=== PATIENT | female | born 1960 | race Caucasian/White ===

== ENCOUNTER → 2023-10-25 09:52 | Outpatient (REF) | payer MEDICARE, BC, SELFPAY | LOC: PAVMRI 09:52 | PROVIDERS: ATTENDING PHYSICIAN Orthopaedic Surgery; FAMILY PHYSICIAN Internal Medicine | DX: M51.35 Other intervertebral disc degeneration, thoracolumbar region (principal) | CPT/HCPCS: 72148 ==

== ENCOUNTER → 2023-12-23 11:04 | Outpatient (REF) | payer MEDICARE, BC, SELFPAY | LOC: RAD 11:04 | PROVIDERS: ATTENDING PHYSICIAN Surgery Vascular Surgery; FAMILY PHYSICIAN Internal Medicine | DX: I77.9 Disorder of arteries and arterioles, unspecified (principal) | CPT/HCPCS: 93922; 93925 ==

== ENCOUNTER → 2024-01-24 10:00 | Outpatient (REF) | payer MEDICARE, BC, SELFPAY | LOC: WDC 10:00 | PROVIDERS: ATTENDING PHYSICIAN Internal Medicine; REFERRING PHYSICIAN Internal Medicine Rheumatology | DX: Z12.31 Encounter for screening mammogram for malignant neoplasm of breast (principal); M81.0 Age-related osteoporosis without current pathological fracture | CPT/HCPCS: 77063; 77067; 77080 ==

== ENCOUNTER 2024-03-05 08:40 | Outpatient (RCR) | payer MEDICARE, BC, SELFPAY | END 2024-03-05 23:59 | disposition home or self-care (01) | LOC: RPT 08:40 | PROVIDERS: ATTENDING PHYSICIAN Pain Medicine Interventional Pain Medicine; FAMILY PHYSICIAN Internal Medicine | DX: M54.16 Radiculopathy, lumbar region (principal); Z73.6 Limitation of activities due to disability; M62.81 Muscle weakness (generalized); M79.605 Pain in left leg | CPT/HCPCS: 97110; 97162 ==

== ENCOUNTER 2024-04-10 11:02 | Outpatient (RCR) | payer MEDICARE, BC, SELFPAY | END 2024-04-10 23:59 | disposition home or self-care (01) | LOC: RPT 11:02 | PROVIDERS: ATTENDING PHYSICIAN Pain Medicine Interventional Pain Medicine; FAMILY PHYSICIAN Internal Medicine | DX: M54.16 Radiculopathy, lumbar region (principal); Z73.6 Limitation of activities due to disability; M62.81 Muscle weakness (generalized); M79.605 Pain in left leg; R26.89 Other abnormalities of gait and mobility | CPT/HCPCS: 97110; 97112 ==

== ENCOUNTER 2024-05-10 10:32 | Outpatient (RCR) | payer MEDICARE, BC, SELFPAY | END 2024-05-10 23:59 | disposition home or self-care (01) | LOC: RPT 10:32 | PROVIDERS: ATTENDING PHYSICIAN Pain Medicine Interventional Pain Medicine; FAMILY PHYSICIAN Internal Medicine | DX: M54.16 Radiculopathy, lumbar region (principal); Z73.6 Limitation of activities due to disability; M62.81 Muscle weakness (generalized); M79.605 Pain in left leg; R26.89 Other abnormalities of gait and mobility | CPT/HCPCS: 97110; 97112 ==

== ENCOUNTER 2024-06-12 11:18 | Outpatient (RCR) | payer MEDICARE, BC, SELFPAY | END 2024-06-12 23:59 | disposition home or self-care (01) | LOC: RPT 11:18 | PROVIDERS: ATTENDING PHYSICIAN Pain Medicine Interventional Pain Medicine; FAMILY PHYSICIAN Internal Medicine | DX: M54.16 Radiculopathy, lumbar region (principal); Z73.6 Limitation of activities due to disability; M62.81 Muscle weakness (generalized); M79.605 Pain in left leg; R26.2 Difficulty in walking, not elsewhere classified; R26.89 Other abnormalities of gait and mobility; Z91.81 History of falling | CPT/HCPCS: 97110; 97112 ==

== ENCOUNTER 2024-07-13 11:06 | Outpatient (RCR) | payer MEDICARE, BC, SELFPAY | END 2024-07-13 12:35 | disposition home or self-care (01) | LOC: RPT 11:06 | PROVIDERS: ATTENDING PHYSICIAN Pain Medicine Interventional Pain Medicine; FAMILY PHYSICIAN Internal Medicine | DX: M54.16 Radiculopathy, lumbar region (principal); Z73.6 Limitation of activities due to disability; M62.81 Muscle weakness (generalized); R26.2 Difficulty in walking, not elsewhere classified; R26.89 Other abnormalities of gait and mobility; Z91.81 History of falling; M79.605 Pain in left leg | CPT/HCPCS: 97110; 97112; 97530 ==

== ENCOUNTER → 2024-07-18 09:59 | Outpatient (REF) | payer MEDICARE, BC, SELFPAY | LOC: RAD 09:59 | PROVIDERS: ATTENDING PHYSICIAN Surgery Vascular Surgery; FAMILY PHYSICIAN Internal Medicine | DX: I77.9 Disorder of arteries and arterioles, unspecified (principal) | CPT/HCPCS: 93922; 93925; 93978 ==

== ENCOUNTER → 2024-10-25 14:35 | Outpatient (REF) | payer MEDICARE, BC, SELFPAY | LOC: DHSLP 14:35 | PROVIDERS: ATTENDING PHYSICIAN Internal Medicine | DX: G47.19 Other hypersomnia (principal); R06.83 Snoring | CPT/HCPCS: 95800 ==

== ENCOUNTER → 2024-11-02 13:05 | Outpatient (REF) | payer MEDICARE, BC, SELFPAY ==
[2024-11-02 15:07] LABS: Blood Urea Nitrogen 55 mg/dl (7-17); Calcium 9.8 mg/dl (8.4-10.2); Carbon Dioxide 24 mmol/L (22-30); Chloride 103 mmol/L (98-107); Glucose 193 mg/dl (70-99); Potassium 4.9 mmol/L (3.5-5.1); Sodium 137 mmol/L (135-145); eGFR 29.12
== END ==
LOC: REG 13:05
PROVIDERS: FAMILY PHYSICIAN Internal Medicine; OTHER PHYSICIAN Internal Medicine Cardiovascular Disease
DX: I10 Essential (primary) hypertension (principal); I50.32 Chronic diastolic (congestive) heart failure; N18.4 Chronic kidney disease, stage 4 (severe); E10.65 Type 1 diabetes mellitus with hyperglycemia
CPT/HCPCS: 36415; 80048

== ENCOUNTER → 2024-12-10 11:39 | Outpatient (REF) | payer MEDICARE, BC, SELFPAY ==
[2024-12-10 13:21] LABS: Blood Urea Nitrogen 53 mg/dl (7-17); Calcium 9.4 mg/dl (8.4-10.2); Carbon Dioxide 29 mmol/L (22-30); Chloride 99 mmol/L (98-107); Glucose 131 mg/dl (70-99); Potassium 4.3 mmol/L (3.5-5.1); Sodium 138 mmol/L (135-145); eGFR 29.12
== END ==
LOC: REG 11:39
PROVIDERS: ATTENDING PHYSICIAN Internal Medicine; FAMILY PHYSICIAN Internal Medicine; OTHER PHYSICIAN Internal Medicine Cardiovascular Disease
DX: I10 Essential (primary) hypertension (principal); N18.4 Chronic kidney disease, stage 4 (severe); E10.65 Type 1 diabetes mellitus with hyperglycemia; I50.32 Chronic diastolic (congestive) heart failure
CPT/HCPCS: 36415; 80048

== ENCOUNTER → 2025-01-18 11:42 | Outpatient (REF) | payer MEDICARE, BC, SELFPAY ==
[2025-01-18 13:18] LABS: Blood Urea Nitrogen 62 mg/dl (7-17); Calcium 9.8 mg/dl (8.4-10.2); Carbon Dioxide 30 mmol/L (22-30); Chloride 97 mmol/L (98-107); Glucose 101 mg/dl (70-99); Potassium 4.6 mmol/L (3.5-5.1); Sodium 137 mmol/L (135-145); eGFR 23.16
== END ==
LOC: REG 11:42
PROVIDERS: ATTENDING PHYSICIAN Internal Medicine; FAMILY PHYSICIAN Internal Medicine
DX: I10 Essential (primary) hypertension (principal); I50.32 Chronic diastolic (congestive) heart failure
CPT/HCPCS: 36415; 80048

== ENCOUNTER → 2025-01-21 13:04 | Outpatient (REF) | payer MEDICARE, BC, SELFPAY | LOC: RAD 13:04 | PROVIDERS: ATTENDING PHYSICIAN Internal Medicine Rheumatology; FAMILY PHYSICIAN Internal Medicine | DX: M25.511 Pain in right shoulder (principal); M75.51 Bursitis of right shoulder | CPT/HCPCS: 73030 ==

== ENCOUNTER → 2025-01-29 12:27 | Outpatient (REF) | payer MEDICARE, BC, SELFPAY | LOC: RAD 12:27 | PROVIDERS: ATTENDING PHYSICIAN Surgery Vascular Surgery; FAMILY PHYSICIAN Internal Medicine | DX: I77.9 Disorder of arteries and arterioles, unspecified (principal) | CPT/HCPCS: 93922; 93925 ==

== ENCOUNTER → 2025-02-04 11:12 | Outpatient (REF) | payer MEDICARE, BC, SELFPAY | LOC: MRI 3T 11:12 | PROVIDERS: ATTENDING PHYSICIAN Pain Medicine Interventional Pain Medicine; FAMILY PHYSICIAN Internal Medicine | DX: M54.16 Radiculopathy, lumbar region (principal) | CPT/HCPCS: 72148 ==

== ENCOUNTER → 2025-02-07 12:39 | Outpatient (REF) | payer MEDICARE, BC, SELFPAY ==
[2025-02-07 13:53] LABS: Blood Urea Nitrogen 45 mg/dl (7-17); Calcium 9.0 mg/dl (8.4-10.2); Carbon Dioxide 25 mmol/L (22-30); Chloride 100 mmol/L (98-107); Glucose 189 mg/dl (70-99); Potassium 3.9 mmol/L (3.5-5.1); Sodium 134 mmol/L (135-145); eGFR 33.07
== END ==
LOC: REG 12:39
PROVIDERS: ATTENDING PHYSICIAN Internal Medicine; FAMILY PHYSICIAN Internal Medicine
DX: I10 Essential (primary) hypertension (principal); I50.32 Chronic diastolic (congestive) heart failure
CPT/HCPCS: 36415; 80048

== ENCOUNTER → 2025-02-19 10:52 | Outpatient (REF) | payer MEDICARE, BC, SELFPAY | LOC: HWRAD 10:52 | PROVIDERS: ATTENDING PHYSICIAN Neurological Surgery; FAMILY PHYSICIAN Internal Medicine | DX: M43.15 Spondylolisthesis, thoracolumbar region (principal); M48.061 Spinal stenosis, lumbar region without neurogenic claudication | CPT/HCPCS: 72110; 72131 ==

== ENCOUNTER → 2025-02-21 10:30 | Outpatient (REF) | payer MEDICARE, BC, SELFPAY | LOC: RAD 10:30 | PROVIDERS: ATTENDING PHYSICIAN Registered Nurse; FAMILY PHYSICIAN Internal Medicine; REFERRING PHYSICIAN Neurological Surgery | DX: I77.9 Disorder of arteries and arterioles, unspecified (principal); M43.15 Spondylolisthesis, thoracolumbar region; M48.061 Spinal stenosis, lumbar region without neurogenic claudication | CPT/HCPCS: 72082; 93978 ==

== ENCOUNTER → 2025-03-12 14:04 | Outpatient (REF) | payer MEDICARE, BC, SELFPAY ==
[2025-03-12 15:39] LABS: Hematocrit 37.7 % (37.0-47.0); Hemoglobin 12.4 g/dL (12.0-16.0); Mean Corp Hgb Conc. 32.9 g/dL (33.0-37.0); Mean Corpuscular Volume 97.7 fL (81.0-99.0); Nucleated Red Blood Cells % 0 %; Platelet Count 216 10^3/uL (130-400); Red Cell Dist. Width 12.0 % (11.5-14.5)
[2025-03-12 15:54] LABS: Microalb - Urine Creatinine 12.800 mg/dl
[2025-03-12 15:56] LABS: Blood Urea Nitrogen 45 mg/dl (7-17); Calcium 9.2 mg/dl (8.4-10.2); Carbon Dioxide 26 mmol/L (22-30); Chloride 98 mmol/L (98-107); Glucose 129 mg/dl (70-99); Magnesium 2.2 mg/dl (1.6-2.3); Potassium 4.6 mmol/L (3.5-5.1); Sodium 133 mmol/L (135-145); eGFR 38.43
[2025-03-12 16:13] LABS: Vitamin D, 25-OH*** 64.8 ng/mL (30-80)
[2025-03-12 16:17] LABS: Microalbumin, Random Urine 26.0 mg/dl (0.6-1.7)
== END ==
LOC: REG 14:04
PROVIDERS: ATTENDING PHYSICIAN Internal Medicine; FAMILY PHYSICIAN Internal Medicine
DX: N18.4 Chronic kidney disease, stage 4 (severe) (principal)
CPT/HCPCS: 36415; 80048; 82043; 82306; 82570; 83735; 83970; 84100; 84156; 85025

== ENCOUNTER → 2025-04-03 10:54 | Outpatient (REF) | payer MEDICARE, BC, SELFPAY | LOC: WDC 10:54 | PROVIDERS: ATTENDING PHYSICIAN Internal Medicine | DX: Z12.31 Encounter for screening mammogram for malignant neoplasm of breast (principal) | CPT/HCPCS: 77063; 77067 ==